=== PATIENT | female | born 1950 | race African-American/Black ===

== ENCOUNTER 2018-05-03 14:31 | Inpatient (IN) | payer MEDICARE | END 2018-05-05 13:40 | disposition home or self-care (01) | LOC: ER 14:31 → TELE 16:50 → TELE-WESTW 23:57 | DX: F10.129 Alcohol abuse with intoxication, unspecified (principal); G92 Toxic encephalopathy; E87.1 Hypo-osmolality and hyponatremia; I10 Essential (primary) hypertension; E78.5 Hyperlipidemia, unspecified; E66.9 Obesity, unspecified; F19.10 Other psychoactive substance abuse, uncomplicated; E87.6 Hypokalemia; Y90.8 Blood alcohol level of 240 mg/100 ml or more ==